=== PATIENT | male | born 1990 | race Caucasian/White ===

== ENCOUNTER 2022-12-19 20:23 | Emergency (ER) | payer OTHER ==
[~2022-12-19] VITALS: Ht 193 cm; Wt 128.4 kg
[2022-12-19 21:04] LABS: Urine WBC None Seen /hpf (0 - 3)
[2022-12-19 21:17] LABS: Urine Bacteria NONE SEEN /hpf (None Seen); Urine Blood Negative /uL (Negative); Urine Mucus FEW (None Seen); Urine Specific Gravity 1.024 (1.001-1.035)
[2022-12-19] MEDS ORDERED: DexAMETHasone SOD PHOS 10MG/1ML VIAL INJ IM ONE (22:45)
[2022-12-19] MEDS ORDERED: CEPH-510 PO (23:04)
[2022-12-19] MEDS ORDERED: IBUP800T26 PO (23:04)
[2022-12-19 23:42] VITALS: BP 126/65
== END 2022-12-19 23:45 | disposition home or self-care (01) ==
LOC: ER 20:23
DX: N47.2 Paraphimosis (principal); N50.812 Left testicular pain; N50.811 Right testicular pain
CPT/HCPCS: 76870; 81001; 96372; 99285; J1100